=== PATIENT | female | born 1990 | race Caucasian/White ===

== ENCOUNTER 2018-08-03 07:05 | Emergency (ER) | payer SELFPAY, OTHER ==
[2018-08-03] MEDS ORDERED: KETOROLAC 30 MG INJ IM (07:37)
[2018-08-03] MEDS ORDERED: ONDANSETRON 4 MG INJ IM (07:38)
== END 2018-08-03 08:32 | disposition left against medical advice (07) ==
LOC: FTE 07:05
DX: R10.11 Right upper quadrant pain (principal)
CPT/HCPCS: 99282